=== PATIENT | female | born 1965 | race Caucasian/White ===

== ENCOUNTER → 2018-11-07 | Outpatient (CLI) | payer OTHER ==
--- NOTE | 2018-11-07 16:25 | PCVCIMAG ---
EXAM: BILATERAL LOWER EXTREMITY ARTERIAL DUPLEX INDICATION: Peripheral Arterial Disease. Leg pain. FINDINGS: Right Leg: Common femoral and profunda femoral arteries are patent. Occlusion throughout the [place] superficial femoral artery. Popliteal artery is patent. Anterior tibial, peroneal, and posterior tibial arteries are patent. Left Leg: Common femoral and profunda femoral arteries are patent. Occlusion throughout the [place] superficial femoral artery. Popliteal artery is patent. Anterior tibial, peroneal, and posterior tibial arteries are patent. IMPRESSION: Occlusion throughout the [place] right superficial femoral artery. Occlusion throughout the [place] left superficial femoral artery. LOC:[id number]
== END | disposition home or self-care (01) ==
LOC: PCVCIMAG 11:15
PROVIDERS: ATTEND Internal Medicine Cardiovascular Disease
DX: I70.203 Unspecified atherosclerosis of native arteries of extremities, bilateral legs (principal)
CPT/HCPCS: 93925

== ENCOUNTER → 2019-02-09 | Outpatient (CLI) | payer OTHER ==
--- NOTE | 2019-02-09 14:21 | PCVCIMAG ---
APPROVED REPORT Study performed: 02/09/2019 13:12:26 EXAM: Comprehensive 2D, Doppler, and color-flow Echocardiogram Patient Location: Echo lab Room #: 2Status: routine BSA: 2.21 HR: 60 bpmBP: 138/88 mmHg Rhythm: NSR Other Information Study Quality: Good Risk Factors: Cardiac Risk Factors: Hyperlipidemia, HTN, Tobacco Indications Cardiomyopathy Hypertension/HDD HX: [place], Stent LAD 2D Dimensions IVSd: 9.86 (7-11mm)LVOT Diam: 19.74 (18-24mm) LVDd: 46.54 mm PWd: 10.42 (7-11mm)Ascending Ao: 29.94 (22-36mm) LVDs: 24.23 (25-40mm) Left Atrium: 37.42 (27-40mm) Aortic Root: 26.58 mm LV Single Plane 4CH: 57.66 % LV Single Plane 2CH: 56.30 % Biplane EF: 57.0 % Volumes Left Atrial Volume (Systole) Single Plane 4CH: 75.48 mLSingle Plane 2CH: 69.74 mL Biplane LA Volume: 73.00 mLLA ESV Index: 33.00 mL/m2 Aortic Valve AoV Peak Sanjay.: 1.54 m/s AO Peak Gr.: 9.47 mmHgLVOT Max P.78 mmHg LVOT Max V: 0.44 m/s BRAD Vmax: 0.88 cm2 Mitral Valve E/A Ratio: 0.9 MV Decel. Time: 257.43 ms MV E Max Sanjay.: 0.78 m/s MV A Sanjay.: 0.83 m/s IVRT: 117.65 ms TDI E/Lateral E': 7.80E/Medial E': 13.00 Medial E' Sanjay.: 0.06 m/s Lateral E' Sanjay.: 0.10 m/s Pulmonary Valve PV Peak Sanjay.: 0.89 m/sPV Peak Gr.: 3.20 mmHg Pulmonary Vein P Vein S: 0.46 m/sP Vein A: 0.29 m/s P Vein D: 0.29 m/sP Vein A Dur.: 86.5 msec P Vein S/D Ratio: 1.59 Tricuspid Valve TR Peak Sanjay.: 2.18 m/s TR Peak Gr.: 19.08 mmHg TV Vmax: 0.76 m/sPA Pressure: 26.00 mmHg Left Ventricle The left ventricle is normal size. There is normal LV segmental wall motion. There is normal left ventricular wall thickness. Left ventricular systolic function is normal. The left ventricular ejection fraction is within the normal range. LVEF is 55-60%. The left ventricular diastolic function is normal. Right Ventricle The right ventricle is normal size. The right ventricular systolic function is normal. Atria The left atrium size is normal. The right atrium size is normal. Aortic Valve Aortic valve is trileaflet. Mild aortic valve sclerosis. No aortic regurgitation is present. There is no aortic valvular stenosis. Mitral Valve The mitral valve is normal in structure. There is no mitral valve regurgitation noted. No evidence of mitral valve stenosis. Tricuspid Valve The tricuspid valve is normal in structure. Trace tricuspid regurgitation with a PA pressure of 26 mmHg. No pulmonary hypertension. Pulmonic Valve The pulmonary valve is normal in structure. Trace pulmonic regurgitation. Great Vessels The aortic root is normal in size. The ascending aorta is normal in size. Aortic arch is normal in caliber. IVC is normal in size and collapses >50% with inspiration. Pericardium There is no pericardial effusion. There is no pleural effusion. <Conclusion> The left ventricle is normal size. There is normal left ventricular wall thickness. Left ventricular systolic function is normal. The right ventricle is normal size. The left atrium size is normal. Mild aortic valve sclerosis. There is no mitral valve regurgitation noted. Trace tricuspid regurgitation with a PA pressure of 26 mmHg.
== END | disposition home or self-care (01) ==
LOC: PCVCIMAG 13:18
PROVIDERS: ATTEND Internal Medicine Cardiovascular Disease
DX: I25.10 Atherosclerotic heart disease of native coronary artery without angina pectoris (principal); I10 Essential (primary) hypertension; K21.9 Gastro-esophageal reflux disease without esophagitis; E78.00 Pure hypercholesterolemia, unspecified; I73.9 Peripheral vascular disease, unspecified; Z78.0 Asymptomatic menopausal state; Z82.49 Family history of ischemic heart disease and other diseases of the circulatory system; F17.200 Nicotine dependence, unspecified, uncomplicated
CPT/HCPCS: 36415; 93005; 93306; G0463